=== PATIENT | female | born 1930 | race Caucasian/White ===

== ENCOUNTER 2020-02-10 17:44 | Emergency (ER) | payer MEDICARE, OTHER ==
[~2020-02-10 17:44] MED LIST: CEPH500C2 PO; CLON0.1T PO; DIGO-44 PO; DIGO125T71 PO; DOXA4TAB2 PO; DOXA4TAB3 PO; EZET10TA13 PO; FLUO20CA30 PO; FLUO20CA35 PO; FURO20TA4 PO; FURO20TA6 PO; GABA-529 PO; Gabapentin PO; HYDR-4060 PO; IBUP-2784 PO; IMIP10TA5 PO; LEVO50TA11 PO; LEVO50TA4 PO; LOSA50TA64 PO; METO-391 PO; METO5TAB7 PO; POTA-79 PO; POTA20TA12 PO; SIMV-43 PO; TRAM-355 PO; WARF3TAB59 PO
[2020-02-10 18:23] LABS: BASOPHILS % (AUTO) 0.5 % (0.0-5.0); EOSINOPHILS % (AUTO) 2.8 % (0.0-8.0); HEMATOCRIT 30.2 % (36-48); LYMPHOCYTES % (AUTO) 12.7 % (21.0-51.0); MEAN CORPUSCULAR HEMOGLOBIN 29.6 pg (27.0-33.0); MEAN CORPUSCULAR HGB CONC 32.5 g/dL (32.0-36.0); MEAN CORPUSCULAR VOLUME 91.2 fL (79-99); MONOCYTES % (AUTO) 9.3 % (3.0-13.0); NEUTROPHILS % (AUTO) 74.2 % (40.0-77.0); PLATELET COUNT (AUTO) 378 K/uL (130-400); RED BLOOD CELL COUNT(AUTO) 3.31 MIL/uL (4.00-5.50); RED CELL DISTRIBUTION WIDTH 13.7 % (11.0-15.5); WHITE BLOOD COUNT (AUTO) 10.9 K/uL (4.8-10.8)
[2020-02-10 18:31] LABS: CREATININE 0.8 mg/dL (0.5-1.5); POTASSIUM 3.6 mmol/L (3.5-5.1)
[2020-02-10 18:35] LABS: INR 0.9 (0.85-1.15); PARTIAL THROMBOPLASTIN TIME 27.2 SEC (26.3-35.5); PROTHROMBIN TIME 9.8 SEC (9.6-11.6)
[2020-02-10 18:42] LABS: ALBUMIN 3.2 g/dL (3.5-5.0); BILIRUBIN,TOTAL 0.5 mg/dL (0.2-1.0); TOTAL PROTEIN, SERUM 7.1 g/dL (6.0-8.3); TROPONIN I 0.06 ng/mL (0.00-0.06)
[2020-02-10] MEDS ORDERED: NITROGLYCERIN 1GM/1 INCH PACKET TD ONE (20:36)
[2020-02-10] MEDS ORDERED: ASPIRIN 325 MG TABLET ONE (20:36)
== END 2020-02-10 22:11 | disposition home or self-care (01) ==
LOC: EDH 17:44
DX: R07.89 Other chest pain (principal); I48.91 Unspecified atrial fibrillation; Z95.0 Presence of cardiac pacemaker; Z98.890 Other specified postprocedural states
CPT/HCPCS: 36415; 71045; 80053; 82550; 83874; 84484; 85025; 85610; 85730; 93005

== ENCOUNTER 2020-06-30 07:55 | Day surgery (SDC) | payer OTHER ==
[~2020-06-30] VITALS: Ht 157.5 cm; Wt 62.2 kg
[2020-06-30] VITALS (9 sets, daily range): BP systolic 123–187; BP diastolic 55–78
[~2020-06-30 07:55] MED LIST changes: +SODIUM CHLORIDE 0.9% 1000ML 1,000 ML IV ONE
[2020-06-30] MEDS ORDERED: PROPOFOL 10 MG/ML 20ML VIAL IV ONE (10:56)
[2020-06-30] MEDS ORDERED: TRAZ-185 PO (11:15)
[2020-06-30] MEDS ORDERED: AMLO-258 PO (11:15)
[2020-06-30] MEDS ORDERED: OMEP20CA12 PO (11:15)
[2020-06-30] MEDS ORDERED: BUSP5TAB3 PO (11:15)
[2020-06-30] MEDS ORDERED: BISA5TAB12 PO (11:15)
[2020-06-30] MEDS ORDERED: [UNRECOGNIZED DRUG - CODE] PO (11:15)
[2020-06-30] MEDS ORDERED: AEC81 PO (11:15)
[2020-06-30] MEDS ORDERED: DOCU-116 PO (11:15)
[2020-06-30] MEDS ORDERED: ATOR40TA69 PO (11:15)
[2020-06-30] MEDS ORDERED: ISOS10TA2 PO (11:15)
== END 2020-06-30 12:14 | disposition home or self-care (01) ==
LOC: DAH 07:55 → ENDO 07:55
PROVIDERS: ATTEND Internal Medicine Gastroenterology
DX: K22.2 Esophageal obstruction (principal); K44.9 Diaphragmatic hernia without obstruction or gangrene; R13.10 Dysphagia, unspecified; I25.10 Atherosclerotic heart disease of native coronary artery without angina pectoris; R13.12 Dysphagia, oropharyngeal phase; I48.0 Paroxysmal atrial fibrillation; Z88.5 Allergy status to narcotic agent; E78.5 Hyperlipidemia, unspecified; I10 Essential (primary) hypertension; K21.9 Gastro-esophageal reflux disease without esophagitis; F32.9 Major depressive disorder, single episode, unspecified; F41.9 Anxiety disorder, unspecified; Z95.0 Presence of cardiac pacemaker; Z79.01 Long term (current) use of anticoagulants; Z79.899 Other long term (current) drug therapy; Z20.828 Contact with and (suspected) exposure to other viral communicable diseases
CPT/HCPCS: 43249; A4215 ×2; A4221; A4222; A4223; A4606; A4620; A4657; A4663; C1725; C9803; J2704; J7030; U0003

== ENCOUNTER 2020-07-14 07:40 | Day surgery (SDC) | payer OTHER ==
[~2020-07-14] VITALS: Ht 157.5 cm; Wt 61.1 kg
[2020-07-14] VITALS (7 sets, daily range): BP systolic 140–172; BP diastolic 56–77
[~2020-07-14 07:40] MED LIST changes: +AEC81 PO; +AMLO-258 PO; +ATOR40TA69 PO; +BISA5TAB12 PO; +BUSP5TAB3 PO; -CEPH500C2 PO; -CLON0.1T PO; -DIGO125T71 PO; +DOCU-116 PO; -DOXA4TAB2 PO; -DOXA4TAB3 PO; -EZET10TA13 PO; -FLUO20CA30 PO; -FLUO20CA35 PO; -FURO20TA4 PO; -GABA-529 PO; -Gabapentin PO; -HYDR-4060 PO; -IBUP-2784 PO; -IMIP10TA5 PO; +ISOS10TA2 PO; -LEVO50TA4 PO; -METO5TAB7 PO; -POTA20TA12 PO; -SIMV-43 PO; -TRAM-355 PO; +TRAZ-185 PO; -WARF3TAB59 PO; +[UNRECOGNIZED DRUG - CODE] PO
== END 2020-07-14 11:15 | disposition home or self-care (01) ==
LOC: ENDO 07:40 → DAH 07:40 → ENDO 11:15
PROVIDERS: ATTEND Internal Medicine Gastroenterology
DX: K22.2 Esophageal obstruction (principal); Z20.828 Contact with and (suspected) exposure to other viral communicable diseases; K44.9 Diaphragmatic hernia without obstruction or gangrene; K21.9 Gastro-esophageal reflux disease without esophagitis; I10 Essential (primary) hypertension; I25.10 Atherosclerotic heart disease of native coronary artery without angina pectoris; I48.0 Paroxysmal atrial fibrillation; E78.5 Hyperlipidemia, unspecified; F41.9 Anxiety disorder, unspecified; F32.9 Major depressive disorder, single episode, unspecified; Z95.0 Presence of cardiac pacemaker; Z79.01 Long term (current) use of anticoagulants; Z88.8 Allergy status to other drugs, medicaments and biological substances; Z79.82 Long term (current) use of aspirin; Z79.899 Other long term (current) drug therapy
CPT/HCPCS: 43249; 93005; A4215; A4221; A4222; A4223; A4606; A4620; A4663; C1725; C9803; J7030; U0003

== ENCOUNTER 2021-04-03 05:52 | Inpatient (IN) | payer MEDICARE, OTHER ==
[~2021-04-03] VITALS: Ht 157.5 cm; Wt 63.0 kg
[~2021-04-03 05:52] MED LIST changes: -SODIUM CHLORIDE 0.9% 1000ML 1,000 ML IV ONE
[2021-04-03 07:44] LABS: BASOPHILS % (AUTO) 0.4 % (0.0-5.0); EOSINOPHILS % (AUTO) 0.3 % (0.0-8.0); HEMATOCRIT 35.5 % (36-48); LYMPHOCYTES % (AUTO) 6.5 % (21.0-51.0); MEAN CORPUSCULAR HEMOGLOBIN 26.9 pg (27.0-33.0); MEAN CORPUSCULAR HGB CONC 31.8 g/dL (32.0-36.0); MEAN CORPUSCULAR VOLUME 84.5 fL (79-99); MONOCYTES % (AUTO) 11.4 % (3.0-13.0); PLATELET COUNT (AUTO) 300 K/uL (130-400); RED CELL DISTRIBUTION WIDTH 16.6 % (11.0-15.5); WHITE BLOOD COUNT (AUTO) 11.4 K/uL (4.8-10.8)
[2021-04-03] MEDS ORDERED: ZOSYN 3.375GM+NS 50ML 50 ML ONE (07:55)
[2021-04-03] MEDS ORDERED: ACETAMINOPHEN 650 MG SUPPOSITORY RC ONE (07:55)
[2021-04-03] MEDS ORDERED: 0.9%NACL 50ML 50 ML IV ONE (07:56)
[2021-04-03] MEDS ORDERED: ZOSYN 3.375GM+NS 50ML 3.38 GM in 0.9%NACL 50ML 50 ML IV SCH ×2 (08:00→12:30)
[2021-04-03 08:04] LABS: APPEARANCE,URINE CLEAR (CLEAR); BILIRUBIN,URINE NEGATIVE (NEGATIVE); COLOR,URINE YELLOW (YELLOW); GLUCOSE, URINE (UA) NEGATIVE (NEGATIVE); KETONES,URINE NEGATIVE (NEGATIVE); LEUKOCYTE ESTERASE ,URINE TRACE (NEGATIVE); NITRATE,URINE NEGATIVE (NEGATIVE); OCCULT BLOOD,URINE SMALL (NEGATIVE); PROTEIN,URINE 100 mg/dL (NEGATIVE); UROBILINOGEN,URINE 0.2 mg/dL (0.2-1.0)
[2021-04-03 08:08] LABS: ALBUMIN 3.4 g/dL (3.5-5.0); BILIRUBIN,TOTAL 1.9 mg/dL (0.2-1.0); CREATININE 1.3 mg/dL (0.5-1.5); POTASSIUM 3.5 mmol/L (3.5-5.1); TOTAL PROTEIN, SERUM 8.4 g/dL (6.0-8.3)
[2021-04-03 08:09] VITALS: BP 146/71
[2021-04-03 08:12] LABS: BACTERIA,URINE Many /HPF (None Seen); RBC,URINE 0-1 /HPF (0-1); SQUAMOUS EPITHELIAL CELL,UR Rare /HPF (0-2); WBC,URINE 0-1 /HPF (0-1)
[2021-04-03] MEDS: ACETAMINOPHEN 650 MG SUPPOSITORY RC SCH ×3 (09:03→18:47)
[2021-04-03] MEDS ORDERED: NITROGLYCERIN 0.4 MG SL TAB SL PRN (12:30)
[2021-04-03] MEDS ORDERED: ONDANSETRON 4MG INJ IV PRN (12:30)
[2021-04-03] MEDS ORDERED: 0.9%NACL 1000ML 1,000 ML IV SCH (12:30)
[2021-04-03] MEDS ORDERED: LACTULOSE 20 GM/30 ML UDCUP PO PRN (12:30)
[2021-04-03] MEDS ORDERED: METOPROLOL TARTRATE 25 MG TAB PO ONE (13:30)
[2021-04-03] MEDS: NITROGLYCERIN 1GM OINT 1 INCH/1GM TD SCH ×2 (13:33→20:11)
[2021-04-03 15:00] VITALS: BP 132/67
[2021-04-03 16:00] VITALS: BP 133/66
[2021-04-03] MEDS ORDERED: ACETAMINOPHEN 650 MG SUPPOSITORY RC PRN (17:30)
[2021-04-03] MEDS: 0.9%NACL 50ML 50 ML IV SCH (20:00)
[2021-04-03] MEDS: ZOSYN 3.375GM +NS 50ML IV SCH (20:11)
[2021-04-03] MEDS: FAMOTIDINE 20MG VIAL IV SCH (20:11)
[2021-04-03 20:12] VITALS: BP 109/58
[2021-04-03] MEDS: METOPROLOL TARTRATE 25 MG TAB PO SCH (20:12)
[2021-04-04 00:12] VITALS: BP 122/67
[2021-04-04 04:16] VITALS: BP 123/75
[2021-04-04] MEDS: NITROGLYCERIN 1GM OINT 1 INCH/1GM TD SCH ×3 (04:58→21:34)
[2021-04-04 06:10] LABS: BASOPHILS % (AUTO) 0.6 % (0.0-5.0); EOSINOPHILS % (AUTO) 0.9 % (0.0-8.0); HEMATOCRIT 30.4 % (36-48); LYMPHOCYTES % (AUTO) 8.6 % (21.0-51.0); MEAN CORPUSCULAR HEMOGLOBIN 26.7 pg (27.0-33.0); MEAN CORPUSCULAR HGB CONC 31.6 g/dL (32.0-36.0); MEAN CORPUSCULAR VOLUME 84.4 fL (79-99); MONOCYTES % (AUTO) 11.3 % (3.0-13.0); NEUTROPHILS % (AUTO) 78.2 % (40.0-77.0); PLATELET COUNT (AUTO) 240 K/uL (130-400); RED CELL DISTRIBUTION WIDTH 16.6 % (11.0-15.5)
[2021-04-04 06:26] LABS: ALBUMIN 2.8 g/dL (3.5-5.0); BILIRUBIN,TOTAL 1.8 mg/dL (0.2-1.0); CREATININE 1.1 mg/dL (0.5-1.5); TOTAL PROTEIN, SERUM 7.1 g/dL (6.0-8.3)
[2021-04-04 06:32] LABS: POTASSIUM 2.9 mmol/L (3.5-5.1)
[2021-04-04 08:00] VITALS: BP 125/71
[2021-04-04] MEDS: ZOSYN 3.375GM +NS 50ML IV SCH ×2 (08:39→21:34)
[2021-04-04] MEDS: ASPIRIN 81 MG EC TAB PO SCH (08:40)
[2021-04-04] MEDS: FAMOTIDINE 20MG VIAL IV SCH ×2 (08:40→21:34)
[2021-04-04] MEDS: ENOXAPARIN SODIUM 30 MG/0.3 ML SQ SCH (08:40)
[2021-04-04] MEDS: ATORVASTATIN 40 MG TABLET PO SCH (08:40)
[2021-04-04] MEDS: 0.9%NACL 50ML 50 ML IV SCH ×2 (08:40→21:34)
[2021-04-04] MEDS: AMLODIPINE 5 MG TAB PO SCH (08:41)
[2021-04-04] MEDS: METOPROLOL TARTRATE 25 MG TAB PO SCH ×2 (08:41→21:35)
[2021-04-04] MEDS ORDERED: ISOSORBIDE DINITRATE 10MG TAB PO SCH (09:00)
[2021-04-04 11:46] VITALS: BP 138/79
[2021-04-04] MEDS ORDERED: LIDOCAINE HCL-MPF 1% 2ML VIAL IV PRN (13:00)
[2021-04-04] MEDS ORDERED: POTASSIUM CHLORIDE 20MEQ/100ML 100 ML IV PRN (13:00)
[2021-04-04] MEDS: ACETAMINOPHEN 325 MG TAB PO PRN (13:09)
[2021-04-04] MEDS: POTASSIUM CHLORIDE 10% ELIXIR 20 MEQ/15 ML UDCUP PO PRN ×3 (14:07→18:51)
[2021-04-04 16:00] VITALS: BP 135/73
[2021-04-04 20:00] VITALS: BP_SYST 128; BP_SYST 152; BP_DIAS 66; BP_DIAS 73
[2021-04-04] MEDS ORDERED: ENOXAPARIN SODIUM 1 MG/KG SQ SCH (21:00)
[2021-04-05] VITALS (9 sets, daily range): BP systolic 116–169; BP diastolic 64–77
[2021-04-05] MEDS: ACETAMINOPHEN 325 MG TAB PO PRN (00:58)
[2021-04-05] MEDS: NITROGLYCERIN 1GM OINT 1 INCH/1GM TD SCH (04:00)
[2021-04-05 04:14] LABS: BASOPHILS % (AUTO) 0.5 % (0.0-5.0); EOSINOPHILS % (AUTO) 1.7 % (0.0-8.0); HEMATOCRIT 28.8 % (36-48); LYMPHOCYTES % (AUTO) 5.6 % (21.0-51.0); MEAN CORPUSCULAR HEMOGLOBIN 26.4 pg (27.0-33.0); MEAN CORPUSCULAR HGB CONC 31.3 g/dL (32.0-36.0); MEAN CORPUSCULAR VOLUME 84.5 fL (79-99); MONOCYTES % (AUTO) 11.5 % (3.0-13.0); NEUTROPHILS % (AUTO) 80.3 % (40.0-77.0); PLATELET COUNT (AUTO) 260 K/uL (130-400); RED BLOOD CELL COUNT(AUTO) 3.41 MIL/uL (4.00-5.50); RED CELL DISTRIBUTION WIDTH 16.5 % (11.0-15.5); WHITE BLOOD COUNT (AUTO) 10.1 K/uL (4.8-10.8)
[2021-04-05 04:27] LABS: ALBUMIN 2.7 g/dL (3.5-5.0); BILIRUBIN,TOTAL 2.2 mg/dL (0.2-1.0); MAGNESIUM 2.1 mg/dL (1.80-2.40); POTASSIUM 3.9 mmol/L (3.5-5.1); TOTAL PROTEIN, SERUM 6.9 g/dL (6.0-8.3)
[2021-04-05] MEDS: KCL 20 MEQ ERTAB PO PRN (05:23)
[2021-04-05] MEDS: METOPROLOL TARTRATE 25 MG TAB PO SCH ×2 (09:33→20:58)
[2021-04-05] MEDS: AMLODIPINE 5 MG TAB PO SCH (09:33)
[2021-04-05] MEDS: FUROSEMIDE 20MG VIAL IV SCH ×2 (09:33→20:58)
[2021-04-05] MEDS: FAMOTIDINE 20MG VIAL IV SCH ×2 (09:33→20:58)
[2021-04-05] MEDS: LOSARTAN 25 MG TABLET PO SCH (09:33)
[2021-04-05] MEDS: ASPIRIN 81 MG EC TAB PO SCH (09:33)
[2021-04-05] MEDS: ATORVASTATIN 40 MG TABLET PO SCH (09:33)
[2021-04-05] MEDS: 0.9%NACL 50ML 50 ML IV SCH ×2 (09:34→20:59)
[2021-04-05] MEDS: ZOSYN 3.375GM +NS 50ML IV SCH ×2 (09:34→20:59)
[2021-04-05] MEDS: ENOXAPARIN SODIUM 30 MG/0.3 ML SQ SCH (09:34)
[2021-04-05] MEDS: IPRATROPIUM/ALBUTEROL SULFATE 3 ML SOLUTION IH SCH ×2 (14:02→18:27)
[2021-04-05] MEDS: DOXYCYCLINE HYCLATE 100 MG TABLET PO SCH ×2 (14:38→20:59)
[2021-04-05] MEDS ORDERED: GUAIFENESIN-DM 200/20 MG 10 ML PO PRN (16:00)
[2021-04-05] MEDS: GUAIFENESIN-DM 200/20 MG 10 ML PO SCH (17:30)
[2021-04-05] MEDS ORDERED: SODIUM CHLORIDE 3% FOR INHALATION 4 ML/AMP VIAL.NEB IH SCH (18:00)
[2021-04-05] MEDS: POTASSIUM CHLORIDE 10% ELIXIR 20 MEQ/15 ML UDCUP PO PRN (21:05)
[2021-04-06] MEDS: IPRATROPIUM/ALBUTEROL SULFATE 3 ML SOLUTION IH SCH ×3 (00:50→12:10)
[2021-04-06 03:37] LABS: BASOPHILS % (AUTO) 0.3 % (0.0-5.0); EOSINOPHILS % (AUTO) 0.4 % (0.0-8.0); HEMATOCRIT 29.5 % (36-48); LYMPHOCYTES % (AUTO) 6.1 % (21.0-51.0); MEAN CORPUSCULAR HEMOGLOBIN 26.9 pg (27.0-33.0); MEAN CORPUSCULAR HGB CONC 32.2 g/dL (32.0-36.0); MEAN CORPUSCULAR VOLUME 83.6 fL (79-99); MONOCYTES % (AUTO) 9.5 % (3.0-13.0); NEUTROPHILS % (AUTO) 82.9 % (40.0-77.0); PLATELET COUNT (AUTO) 266 K/uL (130-400); RED BLOOD CELL COUNT(AUTO) 3.53 MIL/uL (4.00-5.50); RED CELL DISTRIBUTION WIDTH 16.7 % (11.0-15.5); WHITE BLOOD COUNT (AUTO) 9.2 K/uL (4.8-10.8)
[2021-04-06 04:00] VITALS: BP 130/68
[2021-04-06 04:02] LABS: ALBUMIN 2.7 g/dL (3.5-5.0); BILIRUBIN,TOTAL 2.5 mg/dL (0.2-1.0); CREATININE 1.1 mg/dL (0.5-1.5); POTASSIUM 3.5 mmol/L (3.5-5.1); TOTAL PROTEIN, SERUM 7.4 g/dL (6.0-8.3)
[2021-04-06] MEDS: GUAIFENESIN-DM 200/20 MG 10 ML PO SCH ×2 (04:13→17:50)
[2021-04-06 06:23] LABS: DIGOXIN 0.45 ng/mL (0.50-2.00)
[2021-04-06 07:35] VITALS: BP 180/79
[2021-04-06] MEDS: 0.9%NACL 50ML 50 ML IV SCH ×2 (07:55→20:45)
[2021-04-06] MEDS: ZOSYN 3.375GM +NS 50ML IV SCH ×2 (09:10→20:45)
[2021-04-06] MEDS: FAMOTIDINE 20MG VIAL IV SCH ×2 (09:10→20:46)
[2021-04-06] MEDS: ENOXAPARIN SODIUM 30 MG/0.3 ML SQ SCH (09:10)
[2021-04-06] MEDS: METOPROLOL TARTRATE 25 MG TAB PO SCH ×2 (09:11→20:47)
[2021-04-06] MEDS: DOXYCYCLINE HYCLATE 100 MG TABLET PO SCH ×2 (09:11→20:46)
[2021-04-06] MEDS: LOSARTAN 25 MG TABLET PO SCH (09:11)
[2021-04-06] MEDS: AMLODIPINE 5 MG TAB PO SCH (09:11)
[2021-04-06] MEDS: ATORVASTATIN 40 MG TABLET PO SCH (09:11)
[2021-04-06] MEDS: ASPIRIN 81 MG EC TAB PO SCH (09:11)
[2021-04-06] MEDS: FUROSEMIDE 20 MG TABLET PO SCH (09:16)
[2021-04-06 11:20] VITALS: BP 157/68
[2021-04-06 15:35] VITALS: BP 149/58
[2021-04-06] MEDS ORDERED: MAGNESIUM 2GM PREMIX 50ML 50 ML IV PRN (17:00)
[2021-04-06] MEDS: IPRATROPIUM 0.5 MG/2.5 ML INH IH SCH (18:47)
[2021-04-06] MEDS: BUDESONIDE 0.5 MG/2 ML INH IH SCH (18:47)
[2021-04-06 19:00] VITALS: BP 154/55
[2021-04-06] MEDS: MONTELUKAST SODIUM 10 MG TAB PO SCH (20:46)
[2021-04-07] VITALS (7 sets, daily range): BP systolic 140–176; BP diastolic 52–78
[2021-04-07] MEDS: IPRATROPIUM 0.5 MG/2.5 ML INH IH SCH ×5 (01:01→23:41)
[2021-04-07] MEDS: GUAIFENESIN-DM 200/20 MG 10 ML PO SCH ×2 (04:12→18:21)
[2021-04-07 05:56] LABS: BASOPHILS % (AUTO) 0.4 % (0.0-5.0); EOSINOPHILS % (AUTO) 3.3 % (0.0-8.0); HEMATOCRIT 30.1 % (36-48); LYMPHOCYTES % (AUTO) 8.8 % (21.0-51.0); MEAN CORPUSCULAR HGB CONC 30.9 g/dL (32.0-36.0); MEAN CORPUSCULAR VOLUME 84.1 fL (79-99); MONOCYTES % (AUTO) 10.3 % (3.0-13.0); NEUTROPHILS % (AUTO) 76.8 % (40.0-77.0); PLATELET COUNT (AUTO) 293 K/uL (130-400); RED BLOOD CELL COUNT(AUTO) 3.58 MIL/uL (4.00-5.50); WHITE BLOOD COUNT (AUTO) 6.9 K/uL (4.8-10.8)
[2021-04-07 06:00] LABS: CREATININE 0.9 mg/dL (0.5-1.5); POTASSIUM 3.1 mmol/L (3.5-5.1)
[2021-04-07] MEDS: BUDESONIDE 0.5 MG/2 ML INH IH SCH ×2 (06:15→18:46)
[2021-04-07] MEDS: ENOXAPARIN SODIUM 30 MG/0.3 ML SQ SCH (09:00)
[2021-04-07] MEDS: DOXYCYCLINE HYCLATE 100 MG TABLET PO SCH ×2 (10:03→20:57)
[2021-04-07] MEDS: AMLODIPINE 5 MG TAB PO SCH (10:04)
[2021-04-07] MEDS: ATORVASTATIN 40 MG TABLET PO SCH (10:04)
[2021-04-07] MEDS: METOPROLOL TARTRATE 25 MG TAB PO SCH ×2 (10:04→20:58)
[2021-04-07] MEDS: FUROSEMIDE 20 MG TABLET PO SCH (10:05)
[2021-04-07] MEDS: LOSARTAN 50 MG TABLET PO SCH (10:05)
[2021-04-07] MEDS: ASPIRIN 81 MG EC TAB PO SCH (10:05)
[2021-04-07] MEDS: 0.9%NACL 50ML 50 ML IV SCH ×2 (10:06→20:58)
[2021-04-07] MEDS: FAMOTIDINE 20MG VIAL IV SCH ×2 (10:06→20:57)
[2021-04-07] MEDS: ZOSYN 3.375GM +NS 50ML IV SCH ×2 (10:06→20:57)
[2021-04-07] MEDS: KCL 20 MEQ ERTAB PO PRN ×2 (10:10→18:22)
[2021-04-07] MEDS: MONTELUKAST SODIUM 10 MG TAB PO SCH (20:57)
[2021-04-08] MEDS: GUAIFENESIN-DM 200/20 MG 10 ML PO SCH ×2 (03:16→17:38)
[2021-04-08 03:44] VITALS: BP 155/68
[2021-04-08 06:34] LABS: BASOPHILS % (AUTO) 0.6 % (0.0-5.0); EOSINOPHILS % (AUTO) 8.4 % (0.0-8.0); HEMATOCRIT 29.2 % (36-48); MEAN CORPUSCULAR HEMOGLOBIN 26.6 pg (27.0-33.0); MEAN CORPUSCULAR HGB CONC 31.8 g/dL (32.0-36.0); MEAN CORPUSCULAR VOLUME 83.4 fL (79-99); NEUTROPHILS % (AUTO) 69.4 % (40.0-77.0); PLATELET COUNT (AUTO) 328 K/uL (130-400); RED CELL DISTRIBUTION WIDTH 17.1 % (11.0-15.5); WHITE BLOOD COUNT (AUTO) 6.4 K/uL (4.8-10.8)
[2021-04-08 06:42] LABS: CREATININE 0.9 mg/dL (0.5-1.5)
[2021-04-08] MEDS: BUDESONIDE 0.5 MG/2 ML INH IH SCH ×2 (07:27→18:32)
[2021-04-08] MEDS: IPRATROPIUM 0.5 MG/2.5 ML INH IH SCH ×4 (07:27→23:37)
[2021-04-08 08:00] VITALS: BP 158/74
[2021-04-08] MEDS: ENOXAPARIN SODIUM 30 MG/0.3 ML SQ SCH (09:00)
[2021-04-08] MEDS: ZOSYN 3.375GM +NS 50ML IV SCH ×2 (10:01→20:56)
[2021-04-08] MEDS: FAMOTIDINE 20MG VIAL IV SCH ×2 (10:02→20:57)
[2021-04-08] MEDS: 0.9%NACL 50ML 50 ML IV SCH ×2 (10:02→20:57)
[2021-04-08] MEDS: PREDNISONE 20 MG TABLET PO SCH (10:03)
[2021-04-08] MEDS: ASPIRIN 81 MG EC TAB PO SCH (10:03)
[2021-04-08] MEDS: METOPROLOL TARTRATE 25 MG TAB PO SCH ×2 (10:04→20:57)
[2021-04-08] MEDS: AMLODIPINE 5 MG TAB PO SCH (10:04)
[2021-04-08] MEDS: LOSARTAN 50 MG TABLET PO SCH (10:04)
[2021-04-08] MEDS: ATORVASTATIN 40 MG TABLET PO SCH (10:04)
[2021-04-08] MEDS: FUROSEMIDE 20 MG TABLET PO SCH (10:04)
[2021-04-08] MEDS: DOXYCYCLINE HYCLATE 100 MG TABLET PO SCH ×2 (10:05→20:56)
[2021-04-08 12:00] VITALS: BP 168/75
[2021-04-08 16:00] VITALS: BP 155/66
[2021-04-08 19:00] VITALS: BP 164/58
[2021-04-08] MEDS: MONTELUKAST SODIUM 10 MG TAB PO SCH (20:57)
[2021-04-08] MEDS: INSULIN HUMULIN R 100 UNIT/ML 3ML SQ SCH (21:00)
[2021-04-09] VITALS (7 sets, daily range): BP systolic 134–178; BP diastolic 68–81
[2021-04-09] MEDS: GUAIFENESIN-DM 200/20 MG 10 ML PO SCH ×2 (04:16→17:58)
[2021-04-09] MEDS: INSULIN HUMULIN R 100 UNIT/ML 3ML SQ SCH ×4 (05:28→20:18)
[2021-04-09] MEDS: BUDESONIDE 0.5 MG/2 ML INH IH SCH ×3 (06:51→19:55)
[2021-04-09] MEDS: IPRATROPIUM 0.5 MG/2.5 ML INH IH SCH ×5 (06:51→23:47)
[2021-04-09 06:55] LABS: BASOPHILS % (AUTO) 0.3 % (0.0-5.0); HEMATOCRIT 31.1 % (36-48); MEAN CORPUSCULAR HEMOGLOBIN 26.8 pg (27.0-33.0); MEAN CORPUSCULAR HGB CONC 31.5 g/dL (32.0-36.0); MEAN CORPUSCULAR VOLUME 85.2 fL (79-99); MONOCYTES % (AUTO) 7.6 % (3.0-13.0); NEUTROPHILS % (AUTO) 82.2 % (40.0-77.0); PLATELET COUNT (AUTO) 392 K/uL (130-400); RED BLOOD CELL COUNT(AUTO) 3.65 MIL/uL (4.00-5.50); RED CELL DISTRIBUTION WIDTH 16.9 % (11.0-15.5); WHITE BLOOD COUNT (AUTO) 9.1 K/uL (4.8-10.8)
[2021-04-09] MEDS: 0.9%NACL 50ML 50 ML IV SCH ×2 (08:00→20:17)
[2021-04-09 09:07] LABS: CREATININE 0.9 mg/dL (0.5-1.5); POTASSIUM 3.7 mmol/L (3.5-5.1)
[2021-04-09] MEDS: KCL 20 MEQ ERTAB PO PRN (11:01)
[2021-04-09] MEDS: DOXYCYCLINE HYCLATE 100 MG TABLET PO SCH ×2 (11:02→20:17)
[2021-04-09] MEDS: PREDNISONE 20 MG TABLET PO SCH (11:02)
[2021-04-09] MEDS: METOPROLOL TARTRATE 25 MG TAB PO SCH ×2 (11:02→20:17)
[2021-04-09] MEDS: ENOXAPARIN SODIUM 30 MG/0.3 ML SQ SCH (11:02)
[2021-04-09] MEDS: FAMOTIDINE 20MG VIAL IV SCH ×2 (11:02→20:17)
[2021-04-09] MEDS: AMLODIPINE 5 MG TAB PO SCH (11:02)
[2021-04-09] MEDS: LOSARTAN 50 MG TABLET PO SCH (11:02)
[2021-04-09] MEDS: ATORVASTATIN 40 MG TABLET PO SCH (11:03)
[2021-04-09] MEDS: FUROSEMIDE 20 MG TABLET PO SCH (11:03)
[2021-04-09] MEDS: ASPIRIN 81 MG EC TAB PO SCH (11:03)
[2021-04-09] MEDS: ZOSYN 3.375GM +NS 50ML IV SCH ×2 (11:03→20:17)
[2021-04-09] MEDS: MONTELUKAST SODIUM 10 MG TAB PO SCH (20:17)
[2021-04-10 03:11] VITALS: BP 172/81
[2021-04-10] MEDS: GUAIFENESIN-DM 200/20 MG 10 ML PO SCH (03:39)
[2021-04-10] MEDS: INSULIN HUMULIN R 100 UNIT/ML 3ML SQ SCH ×4 (06:03→20:28)
[2021-04-10 06:49] LABS: BASOPHILS % (AUTO) 0.2 % (0.0-5.0); MEAN CORPUSCULAR HGB CONC 31.3 g/dL (32.0-36.0); MEAN CORPUSCULAR VOLUME 83.1 fL (79-99); MONOCYTES % (AUTO) 7.4 % (3.0-13.0); NEUTROPHILS % (AUTO) 82.8 % (40.0-77.0); PLATELET COUNT (AUTO) 382 K/uL (130-400); RED BLOOD CELL COUNT(AUTO) 3.61 MIL/uL (4.00-5.50); RED CELL DISTRIBUTION WIDTH 16.9 % (11.0-15.5)
[2021-04-10 07:08] LABS: POTASSIUM 3.7 mmol/L (3.5-5.1)
[2021-04-10] MEDS: IPRATROPIUM 0.5 MG/2.5 ML INH IH SCH ×3 (07:44→18:29)
[2021-04-10] MEDS: BUDESONIDE 0.5 MG/2 ML INH IH SCH ×2 (07:44→18:29)
[2021-04-10] MEDS: 0.9%NACL 50ML 50 ML IV SCH ×2 (08:00→20:28)
[2021-04-10 09:12] VITALS: BP 165/76
[2021-04-10] MEDS: ZOSYN 3.375GM +NS 50ML IV SCH ×2 (10:24→20:28)
[2021-04-10] MEDS: KCL 20 MEQ ERTAB PO PRN (10:26)
[2021-04-10] MEDS: FAMOTIDINE 20MG VIAL IV SCH ×2 (10:26→20:28)
[2021-04-10] MEDS: LOSARTAN 50 MG TABLET PO SCH (10:26)
[2021-04-10] MEDS: ASPIRIN 81 MG EC TAB PO SCH (10:26)
[2021-04-10] MEDS: DOXYCYCLINE HYCLATE 100 MG TABLET PO SCH ×2 (10:26→20:28)
[2021-04-10] MEDS: FUROSEMIDE 20 MG TABLET PO SCH (10:26)
[2021-04-10] MEDS: PREDNISONE 20 MG TABLET PO SCH (10:26)
[2021-04-10] MEDS: ATORVASTATIN 40 MG TABLET PO SCH (10:26)
[2021-04-10] MEDS: AMLODIPINE 5 MG TAB PO SCH (10:27)
[2021-04-10] MEDS: ENOXAPARIN SODIUM 30 MG/0.3 ML SQ SCH (10:27)
[2021-04-10] MEDS: METOPROLOL TARTRATE 25 MG TAB PO SCH ×2 (10:27→20:28)
[2021-04-10 11:00] VITALS: BP 168/57
[2021-04-10] MEDS ORDERED: METO25TA6 PO (12:00)
[2021-04-10 16:00] VITALS: BP 149/64
[2021-04-10 20:05] VITALS: BP 144/57
[2021-04-10] MEDS: MONTELUKAST SODIUM 10 MG TAB PO SCH (20:28)
== END 2021-04-10 23:33 | DRG 280 ==
LOC: EDH 05:52 → EDHIP 12:18 → 4DH 14:55
PROVIDERS: ADMIT Hospitalist; ATTEND Hospitalist
DX: I21.4 Non-ST elevation (NSTEMI) myocardial infarction (principal); J18.9 Pneumonia, unspecified organism; I50.33 Acute on chronic diastolic (congestive) heart failure; G92 Toxic encephalopathy; J96.21 Acute and chronic respiratory failure with hypoxia; E44.0 Moderate protein-calorie malnutrition; I13.0 Hypertensive heart and chronic kidney disease with heart failure and stage 1 through stage 4 chronic kidney disease, or unspecified chronic kidney disease; I31.3 Pericardial effusion (noninflammatory); I48.19 Other persistent atrial fibrillation; N39.0 Urinary tract infection, site not specified; E78.5 Hyperlipidemia, unspecified; D64.9 Anemia, unspecified; Z20.822 Contact with and (suspected) exposure to COVID-19; M19.90 Unspecified osteoarthritis, unspecified site; K21.9 Gastro-esophageal reflux disease without esophagitis; B96.20 Unspecified Escherichia coli [E. coli] as the cause of diseases classified elsewhere; E78.00 Pure hypercholesterolemia, unspecified; E87.6 Hypokalemia; I07.1 Rheumatic tricuspid insufficiency; I25.10 Atherosclerotic heart disease of native coronary artery without angina pectoris; I27.20 Pulmonary hypertension, unspecified; I45.9 Conduction disorder, unspecified; J43.8 Other emphysema; R29.6 Repeated falls; R53.81 Other malaise; N18.31 Chronic kidney disease, stage 3a; Z96.653 Presence of artificial knee joint, bilateral; Z68.25 Body mass index [BMI] 25.0-25.9, adult; Z91.81 History of falling; Z95.0 Presence of cardiac pacemaker; Z95.1 Presence of aortocoronary bypass graft; Z88.5 Allergy status to narcotic agent; Z79.82 Long term (current) use of aspirin; Z79.899 Other long term (current) drug therapy; Z86.73 Personal history of transient ischemic attack (TIA), and cerebral infarction without residual deficits; Z80.0 Family history of malignant neoplasm of digestive organs; Z82.0 Family history of epilepsy and other diseases of the nervous system; Z82.3 Family history of stroke; Z82.49 Family history of ischemic heart disease and other diseases of the circulatory system; Z82.5 Family history of asthma and other chronic lower respiratory diseases; Z83.3 Family history of diabetes mellitus
CPT/HCPCS: 36415; 70450; 71045; 71250; 80048; 80053; 80162; 81001; 82948; 83735; 83880; 84132; 84145; 84484; 85025; 85378; 86140; 87040; 87077; 87088; 87186; 87635; 87804; 92610; 93005; 93306; 94640; 97039; C9803; G0378; J1650; J1940; J2543; J3480; J3490